=== PATIENT | male | born 1955 | race Two or more races ===

== ENCOUNTER → 2017-05-05 | Outpatient (CLI) | payer BC ==
[~2017-05-05] MED LIST: CIPROFLOXACIN500 M2 ORAL; COLACE100 MG ORAL; IBUPROFEN600 MG ORAL; METRONIDAZOLE500 MG ORAL; NORCO 5-325 TA1 EACH ORAL; SIMVASTATIN20 MG ORAL
[2017-05-05 09:32] LABS: BASOPHILS % (AUTO) 0.9 % (0.0-2.0); EOSINOPHILS % (AUTO) 8.1 % (0.0-3.0); LYMPHOCYTES % (AUTO) 38.1 % (20.0-45.0); MEAN CORPUSCULAR HEMOGLOBIN 30.3 PG (27.0-31.0); MEAN CORPUSCULAR HGB CONC 32.9 G/DL (32.0-36.0); MEAN CORPUSCULAR VOLUME 92 FL (80-99); MEAN PLATELET VOLUME 6.6 FL (6.5-10.1); MONOCYTES % (AUTO) 10.8 % (1.0-10.0); NEUTROPHILS % (AUTO) 42.2 % (45.0-75.0); PLATELET COUNT 194 K/UL (150-450); RED BLOOD COUNT 5.02 M/UL (4.70-6.10); RED CELL DISTRIBUTION WIDTH 11.4 % (11.6-14.8); WHITE BLOOD COUNT 3.8 K/UL (4.8-10.8)
[2017-05-05 10:04] LABS: HEMOGLOBIN A1C 6.6 % (< 6.0)
[2017-05-05 10:14] LABS: PSA TOTAL 2.2 ng/mL (< 3.5)
[2017-05-05 10:25] LABS: ALANINE AMINOTRANSFERASE 25 U/L (3-41); ALBUMIN/GLOBULIN RATIO 1.3 (1.0-2.7); ANION GAP 12 (5-15); ASPARTATE AMINO TRANSFERASE 16 U/L (5-40); CALCIUM 9.6 mg/dL (8.6-10.2); CARBON DIOXIDE 26 mEQ/L (20-30); CHLORIDE 98 mEQ/L (98-107); CHOLESTEROL 110 mg/dL (< 200); CHOLESTEROL/HDL RATIO 2.4 (3.3-4.4); CREATININE 0.7 mg/dL (0.7-1.2); GLOMERULAR FILTRATION RATE > 60 mL/min (>60); HEMOLYSIS 5; LDL CHOLESTEROL (CALC.) 46 mg/dL (60-99); MAGNESIUM 1.9 mg/dL (1.7-2.5); PHOSPHORUS 3.6 mg/dL (2.5-4.8); POTASSIUM 4.5 mEQ/L (3.4-4.9); SODIUM 136 mEQ/L (135-145)
[2017-05-08 12:09] LABS: VITAMIN D 25-OH TOTAL 20 ng/mL (.)
== END | disposition home or self-care (01) ==
LOC: LAB 08:48
DX: E11.9 Type 2 diabetes mellitus without complications (principal); I10 Essential (primary) hypertension; N40.0 Benign prostatic hyperplasia without lower urinary tract symptoms; E78.00 Pure hypercholesterolemia, unspecified
CPT/HCPCS: 36415; 80053; 80061; 82306; 82607; 82746; 83036; 83735; 84100; 84153; 84443; 85025

== ENCOUNTER 2017-06-28 06:51 | Outpatient (CLI) | payer BC ==
[2017-06-28 07:36] LABS: CREATININE 0.8 mg/dL (0.7-1.2); GLOMERULAR FILTRATION RATE > 60 mL/min (>60)
== END 2017-06-28 08:51 | disposition home or self-care (01) ==
LOC: LAB 06:51
DX: I10 Essential (primary) hypertension (principal); E11.9 Type 2 diabetes mellitus without complications
CPT/HCPCS: 36415; 82565; 84520

== ENCOUNTER 2019-04-12 12:59 | Outpatient (CLI) | payer BC, OTHER ==
[~2019-04-12] VITALS: Ht 162.6 cm; Wt 77.6 kg
[2019-04-12] MEDS ORDERED: ASPIRIN EC81 MG ORAL (15:49)
[2019-04-12] MEDS ORDERED: METFORMIN HCL1000 M1 ORAL (15:49)
[2019-04-12] MEDS ORDERED: LISINOPRIL2.5 MG ORAL (15:49)
[2019-04-12] MEDS ORDERED: FLOMAX0.4 MG ORAL (15:49)
[2019-04-12 15:50] VITALS: BP 127/79
--- NOTE | 2019-04-12 17:45 | Consultation ---
DATE OF CONSULTATION: 04/12/2019 CONSULTING PHYSICIAN: Hermelindo Parks M.D. CHIEF COMPLAINT: Referral for screening colonoscopy. PAST MEDICAL HISTORY: 1. Diabetes. 2. Hypertension. 3. BPH. PAST SURGICAL HISTORY: 1. Back surgery. 2. Hernia surgery. MEDICATIONS: Metformin, Flomax, lisinopril, aspirin, simvastatin. ALLERGIES: Sulfa. FAMILY HISTORY: No family history of GI malignancies. SOCIAL HISTORY: The patient is . No history of tobacco, alcohol, or drug abuse. REVIEW OF SYSTEMS: A 10-point review of systems was performed and pertinent positives in HPI. PHYSICAL EXAMINATION: VITAL SIGNS: Temperature 97.5, blood pressure 127/79, pulse 60, respirations 20. HEENT: Normocephalic and atraumatic. Sclerae anicteric. NECK: Supple. No evidence of lymphadenopathy. CARDIOVASCULAR: Regular rhythm. Plus S1 and S2. No obvious murmur. LUNGS: Clear to auscultation bilaterally. ABDOMEN: Positive bowel sounds. Soft and nontender. No rebound. No guarding. No peritoneal sign. EXTREMITIES: No cyanosis, no clubbing, no edema. ASSESSMENT AND PLAN: This is a 63-year-old male, who was referred to us for screening colonoscopy. Last colonoscopy over 10 years ago. Plan to do a screening colonoscopy. The patient was informed about the risks and benefits of procedure, he was given the instructions for the prep, hence he was told that we are going to schedule as soon as authorization is obtained. Hermelindo Parks M.D. DR: CLARENCE JOB#: [id number] CC:
== END 2019-04-12 15:00 | disposition home or self-care (01) ==
LOC: PAN 12:59
DX: Z01.818 Encounter for other preprocedural examination (principal); Z79.899 Other long term (current) drug therapy; I10 Essential (primary) hypertension; E11.9 Type 2 diabetes mellitus without complications; Z88.2 Allergy status to sulfonamides
CPT/HCPCS: 99202

== ENCOUNTER 2019-06-01 07:59 | Day surgery (SDC) | payer OTHER ==
[~2019-06-01] VITALS: Ht 172.7 cm; Wt 77.6 kg
[2019-06-01] VITALS (8 sets, daily range): BP systolic 112–131; BP diastolic 77–87
[~2019-06-01 07:59] MED LIST changes: +ASPIRIN EC81 MG ORAL; +FLOMAX0.4 MG ORAL; +LISINOPRIL2.5 MG ORAL; +METFORMIN HCL1000 M1 ORAL
--- NOTE | 2019-06-01 09:16 | Pre-Procedure Note/Attestation ---
Pre-Procedure Note/Attestation Complete Prior to Procedure Planned Procedure: not applicable Procedure Narrative: colonoscopy Indications for Procedure Pre-Operative Diagnosis: screening Attestation I attest that I discussed the nature of the procedure; its benefits; risks and complications; and alternatives (and the risks and benefits of such alternatives ), prior to the procedure, with the patient (or the patient's legal sales donor recruitment representative). I attest that, if there was a reasonable possibility of needing a blood transfusion, the patient (or the patient's legal sales donor recruitment representative) was given the [facility] standardized written summary, pursuant to the Shyam Montour Blood Safety Act ([place] Health and Safety Code # 1645, as amended). I attest that I re-evaluated the patient just prior to the surgery and that there has been no change in the patient's H&P, except as documented below: Hermelindo Parks MD Jun 01, 2019 09:16
--- NOTE | 2019-06-01 09:16 | Short Stay Surgery H&P ---
History of Present Illness History of Present Illness Chief Complaint see office note HPI Bean Alanis is a 63 year old male who was admitted on for Colon Screening Patient History Allergies: Coded Allergies: SULFA (SULFONAMIDE ANTIBIOTICS) (Verified Allergy, Severe, Rash, 04/12/19) Medication History Scheduled Aspirin Ec* (Aspirin Ec*), 81 MG ORAL DAILY, (Reported) Lisinopril* (Lisinopril*), 2.5 MG ORAL DAILY, (Reported) Metformin Hcl* (Metformin Hcl*), 1,000 MG ORAL BID, (Reported) Simvastatin (Zocor), 20 MG ORAL BEDTIME, (Reported) Tamsulosin HCl (Flomax), 0.4 MG ORAL DAILY, (Reported) Physical Exam Vital Signs Last Vital Signs Date Time Temp Pulse Resp B/P (MAP) Pulse Ox O2 Delivery O2 Flow Rate FiO2 06/01/19 09:05 Room Air 06/01/19 09:00 97.0 77 18 120/85 95 Plan Attestation Are the patient's medical conditions optimized for surgery? Hermelindo Parks MD Jun 01, 2019 09:16
--- NOTE | 2019-06-01 09:25 | Anethesia Preoperative Eval ---
Anesthesia Pre-op PMH/ROS General Date of Evaluation: Jun 01, 2019 Time of Evaluation: 02:00 Anesthesiologist: Tuyet Vanessa CRNA ASA Score: ASA 2 Mallampati Score Class I : Soft palate, uvula, fauces, pillars visible Class II: Soft palate, uvula, fauces visible Class III: Soft palate, base of uvula visible Class IV: Only hard plate visible Mallampati Classification: Class III Surgeon: Kasey Diagnosis: Colon screening Surgical Procedure: Colonoscopy Anesthesia History: none Family History: no anesthesia problems Allergies: Coded Allergies: SULFA (SULFONAMIDE ANTIBIOTICS) (Verified Allergy, Severe, Rash, 04/12/19) Medications: see eMAR Patient NPO?: Yes NPO Date: Jun 01, 2019 NPO Time: 00:00 Past Medical History Cardiovascular: Reports: HTN, other - hypercholesterolemia; Denies: CAD, GA, valve dz, arrhythmia Pulmonary: Denies: asthma, COPD, REGGIE, other Gastrointestinal/Genitourinary: Reports: GERD, other - BPH; Denies: CRI, ESRD Neurologic/Psychiatric: Denies: dementia, CVA, depression/anxiety, TIA, other Endocrine: Reports: DM; Denies: hypothyroidism, steroids, other HEENT: Denies: cataract (L), cataract (R), glaucoma, [place] (L), [place] (R), other Hematology/Immune: Denies: anemia, DVT, bleeding disorder, other Musculoskeletal/Integumentary: Reports: DDD; Denies: OA, RA, DJD, edema, other PMH Narrative: as noted above PSxH Narrative: back surgery Anesthesia Pre-op Phys. Exam Physician Exam Last Vital Signs Date Time Temp Pulse Resp B/P (MAP) Pulse Ox O2 Delivery O2 Flow Rate FiO2 06/01/19 09:05 Room Air 06/01/19 09:00 97.0 77 18 120/85 95 Constitutional: NAD Cardiovascular: RRR Gastrointestinal: S/NT/ND Airway Exam Mallampati Score: Class III MO: full Neck: FROM TMD: > 3 FB Teeth: intact Dentures: no upper, no lower Anesthesia Pre-op A/P Studies Pre-op Studies: EKG - NSR Risk Assessment & Plan Assessment: ASA 2, ok to proceed Plan: MAC Status Change Before Surgery: Tuyet Hunter CRNA Jun 01, 2019 09:25
[2019-06-01] MEDS ORDERED: Propofol 200mg/20ml IV ONE (09:30)
--- NOTE | 2019-06-01 09:51 | Endoscopy Procedure Note ---
Endoscopy Procedure Note General Indication for Procedure: screening Procedures Performed: colonoscopy Operative Findings/Diagnosis: 3 polyps Specimen: yes Pt Tolerated Procedure Well: Yes Estimated Blood Loss: none Anesthesia Anesthesiologist: sammi Anesthesia: MAC Inserted Devices Implant(s) used?: No Quality Quality of Bowel Preparation: Excellent Did scope reach the cecum?: Yes Was there any complications?: No GI Core Measures 50 yrs or older w/o bx or poly: No 10yrs. F/U recommended: Yes If not recommended, why?: Above average risk 18 years or older w/prev. colo: No Hermelindo Parks MD Jun 01, 2019 09:51
--- NOTE | 2019-06-01 10:03 | Immediate Post-Op Evaluation ---
Immediate Post-Op Evalulation Immediate Post-Op Evalulation Procedure: Colonoscopy, polypectomy Date of Evaluation: Jun 01, 2019 Time of Evaluation: 10:02 IV Fluids: 0.9 NS 300 ml Blood Pressure Systolic: 116 Blood Pressure Diastolic: 77 Pulse Rate: 69 Respiratory Rate: 20 O2 Sat by Pulse Oximetry: 98 Temperature (Fahrenheit): 97.3 Pain Score (1-10): 0 Nausea: No Vomiting: No Complications none Patient Status: awake, patent Hydration Status: adequate Given Within 1 Hr of Incision: Tuyet Hunter CRNA Jun 01, 2019 10:03
--- NOTE | 2019-06-01 11:12 | 48 Hour Post Anesthesia Eval ---
Post Anesthesia Evaluation Procedure: Colonoscopy, polypectomy Date of Evaluation: Jun 01, 2019 Time of Evaluation: 11:10 Blood Pressure Systolic: 131 0: 87 Pulse Rate: 65 Respiratory Rate: 17 Temperature (Fahrenheit): 97.3 O2 Sat by Pulse Oximetry: 96 Airway: patent Nausea: No Vomiting: No Pain Intensity: 0 Hydration Status: adequate Cardiopulmonary Status: stable Mental Status/LOC: patient returned to baseline Follow-up Care/Observations: per GI Post-Anesthesia Complications: none Follow-up care needed: N/A Tuyet Vanessa CRNA Jun 01, 2019 11:12
--- NOTE | 2019-06-01 18:15 | Procedure Note ---
DATE OF PROCEDURE: 06/01/2019 SURGEON: Hermelindo Parks M.D. PROCEDURE: Colonoscopy with snare polypectomy and biopsy. ANESTHESIA: Per Tuyet TOVAR. INSTRUMENT: Olympus adult flexible colonoscope. INDICATION: Screening colonoscopy. REASON FOR PROCEDURE: The procedure, risks, benefits, and possible consequences, including hemorrhage, aspiration, perforation and infection, and alternative treatments, were explained to the patient/legal guardian by Dr. Hermelindo Parks and the patient/legal guardian understood and accepted these risks. PROCEDURE IN DETAIL: After informed consent was obtained and the patient was adequately sedated, first rectal exam was performed, which was normal. Then, the scope was advanced from the rectum into the cecum and then subsequently into terminal ileum. Quality of prep was excellent. The patient had total of three polyps, the largest one was in the rectosigmoid area, measured roughly about 7 to 8 mm, removed with hot snare polypectomy technique. The other two, one in the sigmoid and the other one in the transverse colon, both very small, removed with the cold biopsy forceps technique. The rest of the examination grossly looked within normal limit. Retroflexion of rectum showed evidence of internal hemorrhoids. SUMMARY OF FINDINGS: 1. Total of three polyps. See above for details. 2. Internal hemorrhoids. RECOMMENDATIONS: 1. Follow up path. 2. We recommend repeat colonoscopy in three years given three polyps. Hermelindo Parks M.D. DR: NOY JOB#: [id number] CC:
== END 2019-06-01 11:25 | disposition home or self-care (01) ==
LOC: GAS 07:59
DX: Z12.11 Encounter for screening for malignant neoplasm of colon (principal); K63.5 Polyp of colon; D12.5 Benign neoplasm of sigmoid colon; D12.3 Benign neoplasm of transverse colon; K64.8 Other hemorrhoids; Z88.2 Allergy status to sulfonamides; Z79.82 Long term (current) use of aspirin; Z79.899 Other long term (current) drug therapy; Z79.84 Long term (current) use of oral hypoglycemic drugs; I10 Essential (primary) hypertension; E78.00 Pure hypercholesterolemia, unspecified; K21.9 Gastro-esophageal reflux disease without esophagitis; E11.9 Type 2 diabetes mellitus without complications; M19.90 Unspecified osteoarthritis, unspecified site
CPT/HCPCS: 45380; 45385; 82962; J2704; 94003; 94150